=== PATIENT | male | born 1960 ===

== ENCOUNTER → 2018-02-18 17:35 | Outpatient (REF) | payer OTHER, SELFPAY ==
[2018-02-18 18:01] LABS: Add Manual Diff / Slide Review NO; Hematocrit 31.1 % (41-53); Lymphocytes Percent Auto 39.5 % (25-40); Mean Corpuscular HGB Conc 32.1 % (30-36); Mean Corpuscular Hemoglobin 25.7 PG (26-34); Mean Corpuscular Volume 80.1 fL (80-100); Monocytes Percent Auto 9.2 % (3-14); Neutrophils Absolute Auto 2500 /uL (3000-5900); Neutrophils Percent Auto 51.3 % (50-75); Platelet Count 432 X10^3/uL (150-400); Red Blood Cell Count 3.88 X10^6/uL (4.5-5.9); White Blood Cell Count 4.9 X10^3/uL (4.5-11.0)
[2018-02-18 18:08] LABS: Alanine Aminotransferase 31 IU/L (21-72); Albumin 3.3 g/dL (3.5-5.0); Alkaline Phosphatase 139 U/L (38-126); Aspartate Aminotransferase 30 IU/L (17-59); BUN Creatinine Ratio 8.3 (6-22); Bilirubin Total 0.4 mg/dL (0.2-1.3); Blood Urea Nitrogen 5 mg/dL (9-20); Calcium 8.9 mg/dL (8.4-10.2); Carbon Dioxide 32 mmol/L (22-32); Chloride 102 mmol/L (98-107); Estimated Glomerular Filt Rate > 60.0 mL/min (>60); Globulin 3.2 g/dL (1.7-4.1); Glucose 94 mg/dL (70-100); HEMOLYSIS < 15 (0-50); Magnesium 1.7 mg/dL (1.6-2.3); Phosphorous 4.9 mg/dL (2.5-4.5); Potassium 4.4 mmol/L (3.4-5.1); Sodium 140 mmol/L (137-145); Total Protein 6.5 g/dL (6.3-8.2)
[2018-02-18 18:09] LABS: INR 1.9 (0.9-1.3)
== END ==
LOC: LAB 17:35
PROVIDERS: Visit Provider Family Medicine Adult Medicine
DX: Z98.84 Bariatric surgery status (principal); R78.81 Bacteremia; K63.1 Perforation of intestine (nontraumatic); K63.89 Other specified diseases of intestine
CPT/HCPCS: 80053; 83735; 84100; 85025; 85610